=== PATIENT | female | born 1980 | race Asian ===

== ENCOUNTER 2023-01-06 10:00 | Outpatient (CLI) | payer BC | END 2023-01-06 10:01 | disposition home or self-care (01) | LOC: CSHRAD 10:00 | PROVIDERS: ATTEND Family Medicine | DX: J22 Unspecified acute lower respiratory infection (principal); R06.02 Shortness of breath | CPT/HCPCS: 71046 ==

== ENCOUNTER 2025-01-09 07:59 | Outpatient (CLI) | payer OTHER | END 2025-01-09 08:00 | disposition home or self-care (01) | LOC: CSHULT 07:59 | PROVIDERS: ATTEND Obstetrics & Gynecology | DX: R92.8 Other abnormal and inconclusive findings on diagnostic imaging of breast (principal) ==